=== PATIENT | female | born 1950 | race Caucasian/White ===

== ENCOUNTER 2021-10-24 07:12 | Day surgery (SDC) | payer MEDICARE, OTHER ==
[~2021-10-24] VITALS: Ht 167.6 cm; Wt 54.6 kg
[2021-10-24] MEDS ORDERED: FISH OIL 1,2001 EAC7 (07:26)
[2021-10-24] MEDS ORDERED: THYR60 (07:27)
== END 2021-10-24 09:36 | disposition home or self-care (01) ==
LOC: ORSCSDS 07:12
PROVIDERS: Surgery
PROC: 0DJD8ZZ Inspection of Lower Intestinal Tract, Via Natural or Artificial Opening Endoscopic (ICD-10-PCS; principal; 2021-10-24 08:30)
DX: R19.5 Other fecal abnormalities (principal); K57.30 Diverticulosis of large intestine without perforation or abscess without bleeding; E03.9 Hypothyroidism, unspecified; Z79.899 Other long term (current) drug therapy
CPT/HCPCS: J2405; J2704; J7120